=== PATIENT | female | born 1950 | race Caucasian/White ===

== ENCOUNTER 2019-02-07 09:05 | Emergency (ER) | payer MEDICARE ==
[~2019-02-07] VITALS: Ht 157.5 cm; Wt 51.3 kg
[2019-02-07 09:05] VITALS: BP_SYST 117
--- NOTE | 2019-02-07 09:05 | NUR ---
BROUGHT IN BY [facility], PLACED IN BED #7 AND TRIAGED. REPORT GIVEN TO
--- NOTE | 2019-02-07 09:06 | NUR ---
Patient is awake, alert, and oriented x4. States she thought she was having a heart attack this morning and took 1 dose of nitro, with no relief from her dizziness. Vitals are WNL. Patient presents with light headedness
--- NOTE | 2019-02-07 09:07 | NUR ---
SOBEIDA Saucedo at bedside examining patient.
[2019-02-07] MEDS ORDERED: NACL 0.9% 1,000 ML IV ONE ×2 (09:15→12:45)
--- NOTE | 2019-02-07 09:31 | NUR ---
Portable x-ray at bedside.
[2019-02-07 09:32] LABS: BASOPHILS # (AUTO) 0.1 K/uL (0.0-0.2); BASOPHILS % (AUTO) 1.3 % (0.0-2.0); EOSINOPHILS # (AUTO) 0.2 K/uL (0.0-0.4); EOSINOPHILS % (AUTO) 3.3 % (0.0-4.0); HEMATOCRIT 34.7 % (36-48); HEMOGLOBIN 11.7 g/dL (12.0-16.0); LYMPHOCYTES # (AUTO) 1.1 K/uL (1.0-5.5); MEAN CORPUSCULAR HEMOGLOBIN 32 pg (27-31); MEAN CORPUSCULAR HGB CONC 34 % (32-36); MEAN CORPUSCULAR VOLUME 95 fL (79.0-98.0); MONOCYTES # (AUTO) 0.3 K/uL (0.0-1.0); MONOCYTES % (AUTO) 6.1 % (1.7-9.3); NEUTROPHILS # (AUTO) 3.1 K/uL (1.8-7.7); NEUTROPHILS % (AUTO) 66.3 % (40.0-70.0); PLATELET COUNT (AUTO) 140 K/uL (130-430); RED BLOOD CELL COUNT(AUTO) 3.66 MIL/uL (4.2-6.2); RED CELL DISTRIBUTION WIDTH 13.5 % (9.0-15.0); WHITE BLOOD COUNT (AUTO) 4.6 K/uL (4.8-10.8)
[2019-02-07 09:43] LABS: ANION GAP 7 (5-15); CALCIUM 8.7 mg/dL (8.4-11.0); CHLORIDE 106 mmol/L (98-107); CREATININE 0.71 mg/dL (0.55-1.30); GLUCOSE 121 mg/dL (70-99); POTASSIUM 3.8 mmol/L (3.5-5.1); SODIUM SERUM 139 mmol/L (136-145); UREA NITROGEN, BLOOD 19 mg/dL (8-21)
[2019-02-07 09:52] LABS: ALANINE AMINOTRANSFERASE 17 U/L (12-78); ALBUMIN 2.8 g/dL (3.4-4.8); ASPARTATE AMINOTRANSFERASE 14 U/L (10-37); TOTAL BILIRUBIN 0.5 mg/dL (0.0-1.0)
[2019-02-07 09:56] LABS: GFR AFRICAN AMERICAN 106 mL/min (>90)
[2019-02-07] MEDS ORDERED: ACETAMINOPHEN 500 MG TABLET PO ONE (10:15)
[2019-02-07] MEDS ORDERED: MECLIZINE HCL 25 MG TABLET (ANITVERT) PO ONE (10:15)
[2019-02-07 10:17] LABS: BILIRUBIN,URINE NEGATIVE (NEGATIVE); CLARITY/URINE CLEAR (CLEAR); COLOR,URINE YELLOW (YELLOW); GLUCOSE,URINE NEGATIVE (NEGATIVE); KETONES,URINE NEGATIVE (NEGATIVE); LEUKOCYTE ESTERASE ,URINE NEGATIVE (NEGATIVE); NITRITE, URINE NEGATIVE (NEGATIVE); PROTEIN URINE NEGATIVE (NEGATIVE); UROBILINOGEN,URINE 0.2 (0.2-1.0)
[2019-02-07 10:27] LABS: BLOOD, URINE TRACE (NEGATIVE)
[2019-02-07 10:34] LABS: RBC,URINE 0-3 /HPF (0-3)
[2019-02-07 10:35] LABS: BACTERIA,URINE FEW /HPF (None Seen); MUCUS,URINE None Seen /LPF (None Seen); WBC,URINE 0-3 /HPF (0-3)
[2019-02-07] MEDS ORDERED: KETOROLAC TROMETHAMINE 30 MG VIAL IVP ONE (11:45)
[2019-02-07] MEDS ORDERED: ONDANSETRON HCL 4 MG/2 ML VIAL IVP ONE (12:45)
--- NOTE | 2019-02-07 14:26 | NUR ---
Pt assisted with bedpan and placed in position of comfort.
[2019-02-07] MEDS ORDERED: SUMAtriptan SUCCINATE 6 MG/0.5 ML VIAL SUBCUT ONE (14:45)
--- NOTE | 2019-02-07 15:17 | NUR ---
Patient to be transferred to [facility]. Is being transferred due to higher level of care. Receiving facility has accepting physician and available space. ER physician has signed transfer form. Patient or responsible constitution party has agreed to transfer and signed form. Patient belongings inventoried and will be sent with patient. Copy of nursing notes, lab reports, EKG, Physicians Orders and X-rays to be sent with patient. Report called to [facility] receiving facility. Receiving physician is Dr. Oh. [facility] been [facility] for transfer. ETA is now.
[2019-02-07 16:26] VITALS: BP_SYST 119
== END 2019-02-07 15:17 | disposition short-term general hospital (02) ==
LOC: SED 09:05
DX: R00.1 Bradycardia, unspecified (principal); D64.9 Anemia, unspecified; R42 Dizziness and giddiness; I25.2 Old myocardial infarction
CPT/HCPCS: 36415; 71045; 80053; 81000; 84484; 85025; 93005; 96361; 96372; 96374; 99285; J1885; J3030; J7030; J8597